=== PATIENT | female | born 2000 | race Caucasian/White ===

== ENCOUNTER 2022-06-03 10:29 | Emergency (ER) | payer BC ==
[~2022-06-03] VITALS: Ht 157.5 cm; Wt 45.5 kg
[2022-06-03 10:37] VITALS: BP 101/81
[2022-06-03] MEDS ORDERED: dexamethasone sod phosphate 10mg/ml inj IV STA (10:52)
[2022-06-03] MEDS ORDERED: metoclopramide 5 mg/ml inj IV ONE (10:55)
[2022-06-03] MEDS ORDERED: normal saline 1000ML IV soln IVB ONE (10:55)
[2022-06-03] MEDS ORDERED: LORazepam 2 mg/ml vial IV ONE (10:55)
[2022-06-03] MEDS ORDERED: ketorolac trometh. 30mg/ml inj. IV ONE (10:55)
== END 2022-06-03 12:22 | disposition home or self-care (01) ==
LOC: ER 10:30
DX: G43.111 Migraine with aura, intractable, with status migrainosus (principal)
CPT/HCPCS: 96361; 96374; 96375; 99284; J1100; J1885; J2060; J2765; J7030

== ENCOUNTER 2024-02-22 22:38 | Emergency (ER) | payer BC ==
[~2024-02-22] VITALS: Ht 160 cm; Wt 45.4 kg
[2024-02-22 22:46] VITALS: BP 115/58; PULSE 85; RESP 16; TEMP 98.2; O2SAT 99
[2024-02-22] MEDS: SUMAtriptan succ. 6 MG/0.5ml vial SQ ONE (23:15)
[2024-02-22] MEDS: ondansetron 4mg rapidly disintigrating tab PO ONE (23:15)
[2024-02-22] MEDS ORDERED: SUMA100T16 PO (23:36)
[2024-02-22] MEDS ORDERED: ONDA8TAB13 PO (23:37)
== END 2024-02-22 23:45 | disposition home or self-care (01) ==
LOC: ER 22:38
DX: G43.909 Migraine, unspecified, not intractable, without status migrainosus (principal); R11.2 Nausea with vomiting, unspecified
CPT/HCPCS: 96372; 99283; J3030

== ENCOUNTER 2024-10-05 15:09 | Emergency (ER) | payer BC ==
[~2024-10-05] VITALS: Ht 160 cm; Wt 44.7 kg
[~2024-10-05 15:09] MED LIST: ONDA-245 PO; SUMA100T16 PO
[2024-10-05] MEDS: ondansetron 4mg rapidly disintigrating tab PO ONE (15:31)
[2024-10-05] MEDS: SUMAtriptan succ. 6 MG/0.5ml vial SQ ONE (15:34)
[2024-10-05] MEDS ORDERED: SUMA50TA PO (15:52)
[2024-10-05 15:58] VITALS: BP 107/62; PULSE 65; RESP 15; TEMP 98.1; O2SAT 98
== END 2024-10-05 16:00 | disposition home or self-care (01) ==
LOC: ER 15:10
DX: G43.909 Migraine, unspecified, not intractable, without status migrainosus (principal); R11.0 Nausea; Z79.899 Other long term (current) drug therapy
CPT/HCPCS: 96372; 99283; J3030